=== PATIENT | female | born 1965 | race Caucasian/White ===

== ENCOUNTER 2018-12-30 19:13 | Emergency (ER) | payer SELFPAY ==
[~2018-12-30] VITALS: Ht 157.5 cm; Wt 84.5 kg
[~2018-12-30 19:13] MED LIST: TRAM50TA2 PO
[2018-12-30 19:21] VITALS: Ht 157.5 cm; Wt 84.5 kg
[2018-12-30] MEDS ORDERED: ONDANSETRON 4 MG INJ IV STA (22:30)
[2018-12-30] MEDS ORDERED: morphine 4 MG/ML VIAL IV STA (22:30)
[2018-12-30] MEDS ORDERED: SOD CHLORIDE 0.9% 500 ML IV STA (22:30)
[2018-12-30] MEDS ORDERED: KETOROLAC 30 MG INJ IV STA (22:55)
[2018-12-31 01:20] VITALS: BP 119/87; PULSE 58; RESP 18
== END 2018-12-31 01:39 | disposition home or self-care (01) ==
LOC: E/R 19:13
DX: R10.11 Right upper quadrant pain (principal)
CPT/HCPCS: 36415; 74176; 80053; 81003; 83690; 85025; 87086; 96374; 99285; J1885; J7040; J2270; J2405